=== PATIENT | female | born 1945 | race African-American/Black ===

== ENCOUNTER 2016-09-24 16:39 | Emergency (ER) | payer OTHER ==
[~2016-09-24] VITALS: Ht 149.9 cm; Wt 111.1 kg
--- NOTE | 2016-09-24 18:23 | PHYS DOC ---
Past Medical History Past Medical History: COPD, Diabetes-Type II, Hypertension, Other Additional Past Medical Histor: WEARS OXYGEN AT ALL TIMES AT 2 L NC Past Surgical History: Cholecystectomy Alcohol Use: None Drug Use: None Adult General Chief Complaint Chief Complaint: SHORTNESS OF BREATH HPI HPI Patient is a 71 year old female who presents with need for oxygen. Patient reports she is visiting from [place] for a wedding. She flew to [place] yesterday. She usually wears oxygen per nasal cannula at home for COPD; she had arranged with a company that provides her oxygen to have oxygen ready in [place] for her arrival, however company was not ready with oxygen for her. She has gone for a day without oxygen as best she can, however she is feeling short of breath needs oxygen. She denies any chest discomfort. No leg pain. She is not feeling short of breath after oxygen was started in emergency department. She has no other complaints. Review of Systems Review of Systems Constitutional: Denies fever or chills Respiratory: Shortness of breath now resolved Cardiovascular: Denies chest pain GI: Denies abdominal pain, nausea, vomiting, or diarrhea Musculoskeletal: Denies back pain or joint pain Neurologic: Denies headache, focal weakness or sensory changes Allergies Allergies Allergies Coded Allergies Type Severity Reaction Last Updated Verified No Known Drug Allergies 09/24/16 No Physical Exam Physical Exam Constitutional: Well developed, well nourished, no acute distress, non-toxic appearance HENT: Normocephalic, atraumatic, bilateral external ears normal Eyes: EOMI, conjunctiva normal, no discharge Neck: Normal range of motion, no stridor Cardiovascular: Heart rate normal, regular rhythm, no murmur Lungs & Thorax: Bilateral breath sounds clear to auscultation Abdomen: Bowel sounds normal, soft, non-distended, no TTP Skin: Warm, dry, no erythema, no rash Extremities: No obvious deformity, no edema Neurologic: Alert and oriented X 3, no gross deficits noted Current Patient Data Vital Signs Vital Signs Date Time Temp Pulse Resp B/P Pulse Ox O2 Delivery O2 Flow Rate FiO2 09/24/16 18:30 80 24 134/82 91 Nasal Cannula 4 09/24/16 17:10 97.9 97.9 EKG EKG [] Radiology/Procedures Radiology/Procedures [] Course & Med Decision Making Course & Med Decision Making Pertinent Labs and Imaging studies reviewed. (See chart for details) Patient is 71-year-old female who presents with need for oxygen after failure in arrangement to have oxygen setup ready for her. She is no longer SOB while on O2 in ED; she has no other complaints and does not want to be worked up for symptoms as she has clear reason for SOB. No concerning findings on physical exam. After trying multiple channels, nursing staff was able to get in contact with [employer] which was supposed to have provided her with oxygen), who will bring her oxygen to the emergency department that she can take home. Relayed this news to family, who is grateful. Once oxygen arrives then will discharge patient home with return precautions. Dragon Disclaimer Dragon Disclaimer This electronic medical record was generated, in whole or in part, using a voice recognition dictation system. Departure Departure Impression: Primary Impression: Oxygen dependent Disposition: 01 HOME, SELF-CARE Condition: IMPROVED Patient Instructions: Oxygen Use at Home Additional Instructions: Thank you for allowing us to provide care today in the Emergency Department. Use the oxygen as you have been instructed in the past. Schedule a follow up appointment with your primary care doctor as needed. Return promptly to the Emergency Department if you develop any new or concerning symptoms. LUIS COLE MD Sep 24, 2016 18:23
[2016-09-24 19:25] VITALS: BP 106/56
== END 2016-09-24 19:44 | disposition home or self-care (01) ==
LOC: ER 16:39
DX: Z99.81 Dependence on supplemental oxygen (principal); J44.9 Chronic obstructive pulmonary disease, unspecified; E11.9 Type 2 diabetes mellitus without complications; I10 Essential (primary) hypertension
CPT/HCPCS: 99283